=== PATIENT | male | born 1960 | race Caucasian/White ===

== ENCOUNTER 2018-05-17 23:30 | Emergency (ER) | payer MEDICAID ==
[~2018-05-17] VITALS: Ht 160 cm; Wt 59.3 kg
[2018-05-17 23:53] VITALS: Ht 160 cm; Wt 59.3 kg
--- NOTE | 2018-05-18 02:40 | ERD ---
ER Documentation Chief Complaint Chief Complaint C/O LT SIDED CHEST RASH HPI The patient is a 57-year-old male, presenting to the ER because of left-sided chest rash for the last 3-day, it is painful, denies similar symptoms previous ly, denies fever, chills, neck pain, dyspnea, abdominal pain, vomiting. He does not smoke, drink Past medical history: Diabetes mellitus, hypothyroidism Past surgical history: None ROS All systems reviewed and are negative except as per history of present illness. Medications Home Meds Active Scripts Ibuprofen* (Motrin*) 600 Mg Tab, 600 MG PO Q6H PRN for PAIN AND OR ELEVATED TEMP, #30 TAB Prov:MAT ALBERTO MD 05/18/18 Hydrocodone/Acetaminophen ([place] 5-325 Tablet) 1 Each Tablet, 1 TAB PO Q6H PRN for PAIN, #7 TAB Prov:MAT ALBERTO MD 05/18/18 Acyclovir* (Zovirax*) 800 Mg Tablet, 800 MG PO 5 TIMES DAILY for 7 Days, TAB Prov:MAT ALBERTO MD 05/18/18 Allergies Allergies: Coded Allergies: No Known Allergy (Unverified , 05/18/18) Physical Exam Vitals Vital Signs Date Temp Pulse Resp B/P (MAP) Pulse Ox O2 O2 Flow FiO2 Time Delivery Rate 05/18/18 98.1 76 19 135/67 97 03:09 (89) 05/17/18 98.1 83 19 135/67 97 23:53 (89) Physical Exam Const: No acute distress. Head: Atraumatic. Eyes: Normal Conjunctiva. ENT: Normal External Ears, Nose and Mouth. Neck: Full range of motion. No meningismus. Resp: Clear to auscultation bilaterally. Cardio: Regular rate and rhythm. Erythematous, macular, vesicular rash in the left chest radiating to the left upper back Abd: Soft, non distended, normal bowel sounds, non tender. Skin: No petechiae or rashes. Back: No midline or flank tenderness. Ext: No cyanosis, or edema. Neur: Awake and alert. No focal deficit Psych: Normal Mood and Affect. Result Diagram: 05/18/18 0303 05/18/18 0303 Results 24 hrs Laboratory Tests Test 05/18/18 02:49 05/18/18 02:52 05/18/18 03:03 05/18/18 03:06 Bedside Glucose 455 mg/dL 430 mg/dL White Blood 4.0 10^3/ul Count Red Blood Count 5.26 10^6/ul Hemoglobin 16.1 g/dl Hematocrit 45.0 % Mean 85.6 fl Corpuscular Volume Mean 30.6 pg Corpuscular Hemoglobin Mean 35.8 g/dl Corpuscular Hemoglobin Conc ent Red Cell 11.2 % Distribution Width Platelet Count 172 10^3/UL Mean Platelet 10.2 fl Volume Immature 0.200 % Granulocytes % Neutrophils % 65.1 % Lymphocytes % 21.8 % Monocytes % 9.7 % Eosinophils % 2.5 % Basophils % 0.7 % Nucleated Red 0.0 /100WBC Blood Cells % Immature 0.010 10^3/ul Granulocytes # Neutrophils # 2.6 10^3/ul Lymphocytes # 0.9 10^3/ul Monocytes # 0.4 10^3/ul Eosinophils # 0.1 10^3/ul Basophils # 0.0 10^3/ul Nucleated Red 0.0 10^3/ul Blood Cells # Sodium Level 137 mmol/L Potassium Level 4.4 mmol/L Chloride Level 102 mmol/L Carbon Dioxide 25 mmol/L Level Anion Gap 10 Blood Urea 16 mg/dl Nitrogen Creatinine 0.49 mg/dl Est Glomerular > 60 mL/min Filtrat Rate mL/min Glucose Level 468 mg/dl Calcium Level 9.8 mg/dl Phosphorus 4.8 mg/dl Level Magnesium Level 2.1 mg/dl Blood Gas Blood venous Specimen Source Arterial Blood 05/18/2018 3:25: Date Drawn 27 AM Arterial Blood VENOUS LINE Gas Puncture Site Ismael Test N/A Venous Blood pH 7.345 Venous Blood 48.4 mmHG pCO2 (Temp Corrected ) Venous Blood 42.8 mmHG pO2 (Temp Corrected ) Venous Blood 25.8 mmol/L HCO3 Venous Blood 77.5 mmHG Oxygen Saturation Venous Blood -0.5 mmol/L Base Excess Venous Blood 16.0 g/dl Total Hemoglobin Venous Blood 77.3 % Oxyhemoglobin Venous Blood 0 % Methemoglobin Carboxyhemoglob 0.2 % in Blood Gas 37.0 C Temperature Blood Gas 18 Actual Respiration Rat e Blood Gas ROOM AIR Modality FiO2 21.0 % Blood Gas Notified Whom Blood Gas 05/18/2018 3:33: Notified Time 05 AM Test 05/18/18 03:40 Urine Color YELLOW Urine Clarity SLIGHTLY CLOUDY Urine pH 6.0 Urine Specific 1.037 [place] Urine Ketones 1+ mg/dL Urine Nitrite NEGATIVE mg/dL Urine Bilirubin NEGATIVE mg/dL Urine NEGATIVE mg/dL Urobilinogen Urine Leukocyte NEGATIVE Summer/ul Esterase Urine 1 /HPF Microscopic RBC Urine 0 /HPF Microscopic WBC Urine NEGATIVE mg/dL Hemoglobin Urine Glucose 3+ mg/dL Urine Total NEGATIVE mg/dl Protein Current Medications Medications Dose Sig/Dany Start Time Status Last (Trade) Ordered Route PRN Stop Time Admin Dose Reason Admin 1 tab ONCE ONCE 05/18/18 DC 05/18/18 Acetaminophen PO 03:00 03:32 / 05/18/18 03:01 Hydrocodone Bitart ([place] (10/325)) Ondansetron 4 mg ONCE STAT 05/18/18 DC 05/18/18 HCl (Zofran ODT 02:46 03:32 Odt) 05/18/18 02:47 Sodium 590 ml @ ONCE ONCE 05/18/18 05/18/18 Chloride 590 mls/hr IV 03:30 03:32 05/18/18 04:29 Insulin 12 unit ONCE ONCE 05/18/18 DC Human SC 04:00 Lispro 05/18/18 04:01 (Humalog) Diagnostic 1 ea 2 HRS AFTER 05/18/18 DC Test (Pha) HUMALOG ONCE 04:00 (Accu-Chek) XX 05/18/18 04:01 Procedures/MDM MEDICAL MAKING DECISION: The patient is a 57-year-old male, presenting with acute shingle, acute diabetic hyperglycemia. He was treated with [place] 10 mg p.o. for pain and Zofran ODT for nausea, normosaline 10 mm/kg IV, 12 units of Humalog subcu for acute hyperglycemia with good response, is above outpatient follow-up The differential diagnoses considered include but are not limited to cellulitis, HHS, DKA, PNA Departure Diagnosis: Primary Impression: Shingles Additional Impressions: Hyperglycemia Leukopenia Condition: Good Comments He was discharged with acyclovir, 7 tablets of [place] 5 mg, Motrin I discussed the findings with the patient. I advised the patient to follow-up with the primary physician in about 2-3 days, sooner if needed and return if any concern. Disclaimer: Inadvertent spelling and grammatical errors are likely due to EHR/dictation software use and do not reflect on the overall quality of patient care. Also, please note that the electronic time recorded on this note does not necessarily reflect the actual time of the patient encounter. MAT ALBERTO MD May 18, 2018 02:40
[2018-05-18] MEDS ORDERED: ONDANSETRON (ODT) 4 MG TAB ODT STA (02:46)
[2018-05-18] MEDS ORDERED: HYDROCODONE/APAP (10/325) TAB PO ONE (03:00)
[2018-05-18] MEDS ORDERED: SOD CHLORIDE 0.9% 590 ML IV ONE (03:30)
[2018-05-18] MEDS ORDERED: ACYC800T5 PO (03:57)
[2018-05-18] MEDS ORDERED: HYDR-4011 PO (03:58)
[2018-05-18] MEDS ORDERED: IBUP-1542 PO (03:58)
[2018-05-18] MEDS ORDERED: INSULIN LISPRO 100 UNIT/ML VIAL SC ONE (04:00)
[2018-05-18] MEDS ORDERED: ACCU-CHEK XX ONE (04:00)
[2018-05-18 04:54] VITALS: BP 150/79; PULSE 78; RESP 14
== END 2018-05-18 04:56 | disposition home or self-care (01) ==
LOC: E/R 23:30
DX: B02.9 Zoster without complications (principal); D72.819 Decreased white blood cell count, unspecified; E11.65 Type 2 diabetes mellitus with hyperglycemia
CPT/HCPCS: 36415; 80048; 81001; 82803; 82962; 83735; 84100; 85025; 93005; J1815; J7030; Z7502; Z7610; 81003